=== PATIENT | female | born 1975 | race Caucasian/White ===

== ENCOUNTER → 2021-01-26 | Outpatient (CLI) | payer OTHER ==
[~2021-01-26] MED LIST: ALLERGY RELIEF PO; BUTALBIT-ACETA1 EACH PO; CLEOCIN HCL300 MG PO; CLINDAMYCIN HC300 MG PO; CYCLOBENZAPRINE5 MG PO; GABAPENTIN600 MG PO; HYDROCHLOROTHIA25 MG PO; HYDROCODONE PO; HYDROXYZINE PAM25 MG PO; JANUVIA100 MG PO; MECLIZINE HCL25 MG PO; METFORMIN HCL500 MG PO; ONDANSETRON HCL8 MG PO; PANTOPRAZOLE SO40 MG PO
== END ==
LOC: KOH-I 15:34
DX: M25.572 Pain in left ankle and joints of left foot (principal); M79.672 Pain in left foot
CPT/HCPCS: 73610; 73630